=== PATIENT | male | born 1980 | race Caucasian/White ===

== ENCOUNTER → 2016-12-01 | Outpatient (CLI) | payer OTHER ==
[~2016-12-01] MED LIST: KLONOPIN 0.5MG0.5 MG PO; LISINOPRIL5 MG PO; NEURONTIN600 MG/TAB PO; NORCO 325 MG-51 TAB PO; PRINIVIL10 MG PO; ZOFRAN 4MG T4 MG/TAB PO; ZOLOFT 50MG50 MG PO
== END ==
LOC: BHSO 10:50
DX: F41.1 Generalized anxiety disorder (principal)

== ENCOUNTER → 2017-01-08 | Outpatient (CLI) | payer OTHER | LOC: BHSO 10:22 | DX: F41.1 Generalized anxiety disorder (principal) ==

== ENCOUNTER → 2017-03-06 | Outpatient (CLI) | payer OTHER | LOC: BHSO 11:20 | DX: F41.1 Generalized anxiety disorder (principal) ==

== ENCOUNTER → 2017-04-06 | Outpatient (CLI) | payer OTHER | LOC: BHSO 13:47 | DX: F33.1 Major depressive disorder, recurrent, moderate (principal) ==

== ENCOUNTER → 2017-05-28 | Outpatient (CLI) | payer OTHER | LOC: BHSO 10:44 | DX: F33.1 Major depressive disorder, recurrent, moderate (principal) ==

== ENCOUNTER → 2017-09-04 | Outpatient (CLI) | payer OTHER | LOC: BHSO 11:06 | DX: F41.1 Generalized anxiety disorder (principal) ==

== ENCOUNTER → 2018-07-01 | Outpatient (CLI) | payer OTHER | LOC: BHSO 13:18 | DX: F10.20 Alcohol dependence, uncomplicated (principal) | CPT/HCPCS: G0463 ==

== ENCOUNTER → 2018-08-27 | Outpatient (CLI) | payer OTHER | LOC: BHSO 08:16 | DX: F90.0 Attention-deficit hyperactivity disorder, predominantly inattentive type (principal) | CPT/HCPCS: G0463 ==

== ENCOUNTER → 2018-12-31 | Outpatient (CLI) | payer OTHER | LOC: BHSO 08:26 | DX: F90.0 Attention-deficit hyperactivity disorder, predominantly inattentive type (principal) | CPT/HCPCS: G0463 ==

== ENCOUNTER → 2019-07-14 | Outpatient (CLI) | payer OTHER | LOC: BHSO 08:14 | DX: F90.0 Attention-deficit hyperactivity disorder, predominantly inattentive type (principal) | CPT/HCPCS: G0463 ==

== ENCOUNTER 2019-08-06 19:32 | Emergency (ER) | payer OTHER ==
[~2019-08-06] VITALS: Ht 175.3 cm; Wt 102.3 kg
[2019-08-06 21:47] VITALS: BP 138/89; PULSE 80; TEMP 98.6
== END 2019-08-06 21:46 | disposition home or self-care (01) ==
LOC: COL.ER 19:32
DX: S61.412A Laceration without foreign body of left hand, initial encounter (principal); Z23 Encounter for immunization; W26.8XXA Contact with other sharp object(s), not elsewhere classified, initial encounter; Y92.009 Unspecified place in unspecified non-institutional (private) residence as the place of occurrence of the external cause

== ENCOUNTER 2019-08-19 08:31 | Emergency (ER) | payer OTHER ==
[2019-08-19 08:41] VITALS: BP 146/90; PULSE 79; TEMP 99
== END 2019-08-19 08:52 | disposition home or self-care (01) ==
LOC: COL.ER 08:31
DX: S61.412D Laceration without foreign body of left hand, subsequent encounter (principal); X58.XXXD Exposure to other specified factors, subsequent encounter

== ENCOUNTER → 2020-01-26 | Outpatient (CLI) | payer OTHER | LOC: BHSO 10:02 | DX: F41.1 Generalized anxiety disorder (principal) | CPT/HCPCS: G0463 ==

== ENCOUNTER → 2020-08-17 | Outpatient (CLI) | payer OTHER | LOC: BHSO 10:04 | DX: F10.20 Alcohol dependence, uncomplicated (principal) | CPT/HCPCS: G0463 ==